=== PATIENT | female | born 1965 | race Caucasian/White ===

== ENCOUNTER → 2017-08-18 | Outpatient (REF) | LOC: COL.CARD 08:46 | DX: Z01.89 Encounter for other specified special examinations (principal) ==

== ENCOUNTER 2021-01-13 15:45 | Emergency (ER) | payer OTHER ==
[~2021-01-13] VITALS: Ht 165.1 cm; Wt 68.2 kg
[2021-01-13 16:22] LABS: COLLECTION METHOD CLEAN CATCH
[2021-01-13 16:26] LABS: BASO % 0.2 % (0.0-2.0); EOS % 0.3 % (0-4.0); GRAN # 6.6 (1.4-6.5); GRAN % 76.2 % (42.2-75.2); HEMOGLOBIN 12.1 g/dl (12.5-16.0); LYMPH # 1.5 (1.2-3.4); LYMPH % 17.1 % (20.0-51.0); MEAN CELL VOLUME 90 fl (80.0-100.0); MEAN CORPUSCULAR HEMOGLOBIN 31 pg (27.0-31.0); MEAN CORPUSCULAR HGB CONC 34 g/dl (33.0-37.0); MONO # 0.5 (0.1-0.6); MONO % 5.9 % (1.7-9.3); PLATELET COUNT 176 K/mm3 (130-400); RED BLOOD COUNT 3.93 M/mm3 (4.10-5.30); REDCELL DISTRIBUTION WIDTH-CV 12.5 % (11.5-14.5)
[2021-01-13 16:28] LABS: HEMATOCRIT 35.3 % (37.0-47.0)
[2021-01-13 16:31] LABS: PH 7 (5-8); SQUAMOUS EPITHELIAL None Seen /hpf; URINE APPEARANCE Clear; URINE BACTERIA None Seen /hpf; URINE BILIRUBIN Negative (NEGATIVE); URINE BLOOD 2+ (NEGATIVE); URINE COLOR Straw; URINE GLUCOSE Negative (NEGATIVE); URINE KETONE Negative (NEGATIVE); URINE LEUKOCYTE ESTERASE Negative (NEGATIVE); URINE NITRATE Negative (NEGATIVE); URINE PROTEIN(semi-quant) Negative (NEGATIVE); URINE RBC 0-2 /hpf; URINE UROBILINOGEN Negative (NEGATIVE)
[2021-01-13 16:36] LABS: ALBUMIN 4.3 gm/dL (3.5-5.0); BILIRUBIN,TOTAL 0.3 mg/dL (0.0-1.0); CREATININE, serum 0.77 (0.52-1.25); POTASSIUM 3.9 mmol/L (3.4-5.0); TOTAL PROTEIN 7.3 gm/dL (6.4-8.2)
[2021-01-13] MEDS ORDERED: NORCO 325 MG-51 TAB PO ×3 (18:24→19:03)
[2021-01-13] MEDS ORDERED: FLAGYL500 MG PO ×3 (18:24→19:03)
[2021-01-13] MEDS ORDERED: CIPRO 500MG TA500 MG PO ×3 (18:24→19:03)
[2021-01-13 18:36] VITALS: BP 112/63; PULSE 70; TEMP 98.4
== END 2021-01-13 18:41 | disposition home or self-care (01) ==
LOC: COL.ER 15:45
PROVIDERS: Personal Emergency Response Attendant
DX: K57.92 Diverticulitis of intestine, part unspecified, without perforation or abscess without bleeding (principal)
CPT/HCPCS: J2270; J2405; J7030; Q9967

== ENCOUNTER → 2021-04-12 | Outpatient (CLI) | payer OTHER ==
[~2021-04-12] MED LIST: CIPRO 500MG TA500 MG PO; FLAGYL500 MG PO; NORCO 325 MG-51 TAB PO
== END ==
LOC: MC.RAD 11:02
DX: Z12.31 Encounter for screening mammogram for malignant neoplasm of breast (principal)

== ENCOUNTER → 2023-07-07 | Outpatient (CLI) | payer OTHER | LOC: MC.RAD 10:50 | DX: Z12.31 Encounter for screening mammogram for malignant neoplasm of breast (principal) ==